=== PATIENT | female | born 1960 | race Caucasian/White ===

== ENCOUNTER 2017-10-01 06:05 | Inpatient (IN) | payer BC ==
[~2017-10-01] VITALS: Ht 167.6 cm; Wt 124.6 kg
[~2017-10-01 06:05] MED LIST: CRESTOR10 MG; DAPSONE25 MG PO; DOXEPIN 10 MG C10 M1 PO; DULERA 100 MCG/13 GM; GEMFIBROZIL 60600 MG PO; HYDROCHLOROTHIA25 M2 PO; LEXAPRO 10 MG T10 M1 PO; METFORMIN HCL500 MG PO; POTASSIUM20 PO; PREDNISONE 10 M10 MG PO; PREMARIN0.9 M1; PRILOSEC 20 MG20 MG PO; SINGULAIR 10 MG10 M1 PO; SYNTHROID150 MCG PO; VENTOLIN HFA 1818 GM INH; XYZAL5 MG PO; ZANTAC 150MG T150 M1 PO; ZESTRIL20 MG PO; ZYRTEC 10 MG TA10 MG PO
[2017-10-01 06:08] VITALS: BP 145/81
[2017-10-01] MEDS ORDERED: PREDNISONE 5 MG5 M1 PO (06:36)
[2017-10-01] MEDS ORDERED: XOLAIR150 MG SUBQ (06:37)
[2017-10-01] MEDS ORDERED: JANUVIA50 MG PO (06:39)
[2017-10-01] MEDS ORDERED: VENTOLIN HFA INH8 GM INH (06:39)
[2017-10-01] MEDS ORDERED: CEVIMELINE HCL30 MG PO (06:39)
[2017-10-01] MEDS ORDERED: VITAMIN E400 UNIT PO (06:40)
[2017-10-01] MEDS ORDERED: GLYCOTROL CAPS1 EACH PO (06:41)
[2017-10-01] MEDS ORDERED: IRON325 PO (06:41)
[2017-10-01] MEDS ORDERED: CENTRUM SILVER1 EAC4 PO (06:42)
[2017-10-01] MEDS ORDERED: VITAMIN D1000 UNI1 PO (06:42)
[2017-10-01] MEDS ORDERED: DULERA 100 MCG/13 GM INH (06:43)
[2017-10-01 06:58] LABS: HEMATOCRIT 35.5 % (37.0-47.0); HEMOGLOBIN 11.3 gm/dL (12.0-15.0); MCH 30.4 pg (26.0-34.0); MCHC 31.9 g/dL (28.0-37.0); MCV 95.5 fL (80.0-100.0); MPV 8.3 fl. (7.2-11.1); NUCLEATED RBCS 0 /100WBC; PLATELET COUNT* 403 thou/uL (150-400); RBC 3.71 mil/uL (4.20-5.00); RDW-CV 15.3 % (10.5-14.5)
[2017-10-01 07:09] LABS: CALCIUM 9.5 mg/dL (8.5-10.1); CREATININE 0.8 mg/dL (0.6-1.3); POTASSIUM 3.5 mmol/L (3.5-5.1)
[2017-10-01 07:14] LABS: ALBUMIN 3.7 g/dL (3.4-5.0); TOTAL BILIRUBIN 0.5 mg/dL (<0.1-1.0); TOTAL PROTEIN 7.4 g/dL (6.4-8.2)
[2017-10-01 07:48] LABS: ABSOLUTE EOSINOPHILS 0.2 thou/uL (0.0-0.7); ABSOLUTE LYMPHOCYTES 1.3 thou/uL (0.8-5.3); ABSOLUTE MONOCYTES 0.7 thou/uL (0.0-1.2); ABSOLUTE NEUTROPHILS 15.8 thou/uL (1.6-8.1); HYPOCHROMASIA 1+
[2017-10-01 07:49] LABS: PLATELET ESTIMATE INCREASED
[2017-10-01 07:51] LABS: URINE BLOOD NEGATIVE (Negative); URINE CLARITY CLEAR; URINE COLOR YELLOW; URINE GLUCOSE-RANDOM NEGATIVE (Negative); URINE KETONES NEGATIVE (Negative); URINE LEUKOCYTES-REFLEX TRACE (Negative); URINE NITRITE-REFLEX NEGATIVE (Negative); URINE PROTEIN TRACE (Negative); URINE SPECIFIC GRAVITY 1.025 (1.005-1.030); URINE UROBILINOGEN 0.2 E.U./dl (0.2-1.0)
[2017-10-01 07:52] LABS: URINE BILIRUBIN 1+ (Negative)
[2017-10-01 08:13] LABS: BACTERIA-REFLEX 1-9 Few /HPF (None Seen)
[2017-10-01 08:14] LABS: CASTS None Seen /LPF (None Seen); CRYSTALS None Seen /LPF (None Seen); ICTOTEST (BILI CONFIRMATORY) Positive (Negative); MUCUS 4-6 Moderate strn/LPF (None Seen); SQUAMOUS 0-3 Few /LPF (0-3); URINE RBC 0-2 Rare /HPF (0-2)
--- NOTE | 2017-10-01 08:55 | NUR ---
0904 KAROL NOTIFIED OF PT RETURN FROM CT. PT CONNECTED TO O2 AND MONITOR
[2017-10-01 10:19] VITALS: BP 111/62
[2017-10-01 10:40] VITALS: BP 97/47
[2017-10-01 12:19] VITALS: BP 101/41
[2017-10-01 15:33] VITALS: BP 134/63
--- NOTE | 2017-10-01 16:32 | NUR ---
PATIENT ARRIVED FROM ER THIS AM. PATIENT SETTLED TO ROOM AND HISTORY, ASSESSMENT AND VITALS COMPLETED AND DOCUMENTED. PATIENT HAS HAD COMPLAINTS OF NAUSEA BUT HAS HAD NO VOMITING SINCE ARRIVAL TO UNIT, TREATED ADEQUATELY WITH PHENERGAN. PATIENT TOLERATING CLEAR LIQUIDS. PATIENT DENIES ANY NEEDS AT THIS TIME. WILL CONTINUE TO MONITOR.
[2017-10-02 00:05] VITALS: BP 119/63
[2017-10-02 04:10] VITALS: BP 128/55
[2017-10-02 04:23] LABS: ABSOLUTE EOSINOPHILS 0.2 thou/uL (0.0-0.7); ABSOLUTE LYMPHOCYTES 1.3 thou/uL (0.8-5.3); ABSOLUTE MONOCYTES 0.6 thou/uL (0.0-1.2); ABSOLUTE NEUTROPHILS 8.7 thou/uL (1.6-8.1); BASOPHILS 0.2 %; EOSINOPHILS 1.9 %; HEMATOCRIT 29.5 % (37.0-47.0); HEMOGLOBIN 9.6 gm/dL (12.0-15.0); LYMPHOCYTES 12.2 %; MCH 31.2 pg (26.0-34.0); MCHC 32.5 g/dL (28.0-37.0); MCV 96.2 fL (80.0-100.0); MONOCYTES 5.2 %; MPV 8.3 fl. (7.2-11.1); NUCLEATED RBCS 0 /100WBC; POLYS 80.5 %; RBC 3.07 mil/uL (4.20-5.00); RDW-CV 15.2 % (10.5-14.5); WBC 10.8 thou/uL (4.0-11.0)
[2017-10-02 04:55] LABS: PLATELET COUNT* 322 thou/uL (150-400)
[2017-10-02 08:05] VITALS: BP 111/86
[2017-10-02 09:33] LABS: URINE BLOOD TRACE (Negative); URINE CLARITY CLEAR; URINE COLOR YELLOW; URINE GLUCOSE-RANDOM NEGATIVE (Negative); URINE KETONES 1+ (Negative); URINE LEUKOCYTES TRACE (Negative); URINE NITRITE NEGATIVE (Negative); URINE PROTEIN TRACE (Negative); URINE SPECIFIC GRAVITY >= 1.030 (1.005-1.030)
[2017-10-02 09:41] LABS: URINE BILIRUBIN 1+ (Negative)
[2017-10-02 09:42] LABS: ICTOTEST (BILI CONFIRMATORY) Negative (Negative)
[2017-10-02 09:52] LABS: BACTERIA 1-9 Few /HPF (None Seen); CRYSTALS None Seen /LPF (None Seen); HYALINE CASTS 0-3 Few /LPF (None Seen); MUCUS 4-6 Moderate strn/LPF (None Seen); SQUAMOUS 0-3 Few /LPF (0-3); URINE RBC 3-10 Few /HPF (0-2); URINE WBC 6-15 Few /HPF (0-5)
[2017-10-02] MEDS ORDERED: ONDANSETRON HCL4 M2 PO (13:20)
[2017-10-02] MEDS ORDERED: LEVAQUIN 500 M500 M2 PO (13:21)
[2017-10-02] MEDS ORDERED: MELATONIN5 M1 PO (13:39)
[2017-10-02] MEDS ORDERED: TYLENOL325 MG PO (13:39)
[2017-10-02] MEDS ORDERED: BENADRYL25 MG PO (13:41)
[2017-10-02 13:42] VITALS: BP 111/86
--- NOTE | 2017-10-02 14:40 | NUR ---
PATIENT DISCHARGED TO HOME. DISCHARGE PAPERS REVIEWED AND SIGNED. PRESCRIPTIONS AND INFORMATION SHEETS GIVEN. IV REMOVED. PATIENT DENIES ANY FURTHER NEEDS. PATIENT TAKEN BY WHEELCAHIR TO EXIT. LEFT WITH .
== END 2017-10-02 14:40 | disposition home or self-care (01) | DRG 690 ==
LOC: M.ERS 06:05 → M.TBA-ER 09:25 → M.3W 09:25
PROVIDERS: Emergency Medicine; ADMIT Internal Medicine
DX: N39.0 Urinary tract infection, site not specified (principal); K52.9 Noninfective gastroenteritis and colitis, unspecified; E05.90 Thyrotoxicosis, unspecified without thyrotoxic crisis or storm; E11.9 Type 2 diabetes mellitus without complications; Z90.710 Acquired absence of both cervix and uterus; Z90.49 Acquired absence of other specified parts of digestive tract; Z88.1 Allergy status to other antibiotic agents; Z88.8 Allergy status to other drugs, medicaments and biological substances; Z87.891 Personal history of nicotine dependence; Z79.84 Long term (current) use of oral hypoglycemic drugs; Z79.899 Other long term (current) drug therapy

== ENCOUNTER 2021-07-26 13:06 | Emergency (ER) | payer BC ==
[~2021-07-26] VITALS: Ht 167.6 cm; Wt 99.3 kg
[~2021-07-26 13:06] MED LIST changes: +BENADRYL25 MG PO; +CENTRUM SILVER1 EAC4 PO; +CEVIMELINE HCL30 MG PO; +DULERA 100 MCG/13 GM INH; +GLYCOTROL CAPS1 EACH PO; +IRON325 PO; +JANUVIA50 MG PO; +LEVAQUIN 500 M500 M2 PO; +MELATONIN5 M1 PO; +ONDANSETRON HCL4 M2 PO; +PREDNISONE 5 MG5 M1 PO; +TYLENOL325 MG PO; +VENTOLIN HFA INH8 GM INH; +VITAMIN D1000 UNI1 PO; +VITAMIN E400 UNIT PO; +XOLAIR150 MG SUBQ
[2021-07-26] MEDS ORDERED: LIPITOR 40 MG T40 M1 PO (13:34)
[2021-07-26] MEDS ORDERED: CLARITIN10 M3 PO (13:37)
[2021-07-26] MEDS ORDERED: [UNRECOGNIZED DRUG - OTHER] (13:37)
[2021-07-26] MEDS ORDERED: OMEPRAZOLE40 MG PO (13:37)
[2021-07-26] MEDS ORDERED: ARICEPT10 M1 PO (13:38)
[2021-07-26] MEDS ORDERED: 24HR ALLERGY REL5 MG PO (13:38)
[2021-07-26] MEDS ORDERED: WELLBUTRIN XL150 MG PO (13:45)
[2021-07-26] MEDS ORDERED: LEXAPRO20 MG PO (13:46)
[2021-07-26] MEDS ORDERED: LEVOXYL150 MCG PO (13:47)
[2021-07-26] MEDS ORDERED: ALLOPURINOL 30300 M1 PO (13:48)
[2021-07-26] MEDS ORDERED: FLOMAX0.4 MG PO (13:48)
[2021-07-26] MEDS ORDERED: BOOST HIGH PRO237 ML PO (13:49)
[2021-07-26] MEDS ORDERED: BIOTIN1 M1 PO (13:49)
[2021-07-26] MEDS ORDERED: CALCIUM500 MG PO (13:49)
[2021-07-26] MEDS ORDERED: COLLAGEN HYDROLY1 GM (13:50)
[2021-07-26] MEDS ORDERED: POTASSIUM CITR10 ME1 PO (13:50)
[2021-07-26 14:34] LABS: URINE BILIRUBIN NEGATIVE (Negative); URINE BLOOD NEGATIVE (Negative); URINE COLOR YELLOW; URINE GLUCOSE-RANDOM NEGATIVE (Negative); URINE KETONES TRACE (Negative); URINE LEUKOCYTES-REFLEX 1+ (Negative); URINE NITRITE-REFLEX NEGATIVE (Negative); URINE PROTEIN NEGATIVE (Negative); URINE UROBILINOGEN 0.2 E.U./dl (0.2-1.0)
[2021-07-26 14:36] LABS: URINE CLARITY HAZY
[2021-07-26 14:45] LABS: SQUAMOUS 0-3 Few /LPF (0-3)
[2021-07-26 14:46] LABS: BACTERIA-REFLEX None Seen /HPF (None Seen); CASTS None Seen /LPF (None Seen); CRYSTALS None Seen /LPF (None Seen); MUCUS 0-3 Light strn/LPF (None Seen); URINE RBC None Seen /HPF (0-2); URINE WBC-REFLEX 6-15 Few /HPF (0-5)
[2021-07-26 18:41] VITALS: BP 96/59
== END 2021-07-26 18:41 | disposition short-term general hospital (02) ==
LOC: M.ERS 13:06
PROVIDERS: Emergency Medicine Emergency Medical Services
DX: S32.019A Unspecified fracture of first lumbar vertebra, initial encounter for closed fracture (principal); Z20.822 Contact with and (suspected) exposure to COVID-19; J44.9 Chronic obstructive pulmonary disease, unspecified; E11.9 Type 2 diabetes mellitus without complications; Z90.710 Acquired absence of both cervix and uterus; Z90.49 Acquired absence of other specified parts of digestive tract; Z90.89 Acquired absence of other organs; Z79.899 Other long term (current) drug therapy; Z88.0 Allergy status to penicillin; Z88.1 Allergy status to other antibiotic agents; X58.XXXA Exposure to other specified factors, initial encounter; Y93.89 Activity, other specified; Y92.89 Other specified places as the place of occurrence of the external cause; Y99.8 Other external cause status